=== PATIENT | male | born 1935 | race Asian ===

== ENCOUNTER 2017-01-28 17:11 | Emergency (ER) | payer OTHER ==
[~2017-01-28] VITALS: Ht 167.6 cm; Wt 71.0 kg
[~2017-01-28 17:11] MED LIST: ATOR20TA38 PO; DABI150C PO; LOSA1TAB19 PO; METO-448 PO; TIOT18CA IH
[2017-01-28 17:14] VITALS: Ht 167.6 cm; Wt 71.0 kg
[2017-01-28] MEDS ORDERED: ALBUTEROL 0.083% (NEB) 2.5 MG/3 ML AMP HHN STA (17:52)
[2017-01-28] MEDS ORDERED: IPRATROPIUM (NEB) 0.5 MG/2.5 ML AMP HHN ONE (18:00)
--- NOTE | 2017-01-28 18:00 | ERD ---
ER Documentation Chief Complaint Date/Time DATE: 01/28/17 TIME: 17:55 Chief Complaint COUGH X 2 MONTHS HPI 81-year-old male who presents to the emergency room for non-productive cough that is on and off for about 2 months. Daughter stated that patient was treated with azithromycin 2 months ago for the same symptoms. Patient was exposed to family members in the past cough and cold. Denies headache, loss of consciousness, dizziness, blurry vision, changes in vision, photophobia, facial pain, ear pain, throat pain, difficulty swallowing, neck pain, shoulder pain, chest pain, hemoptysis, abdominal pain, back pain, loss of appetite, nausea, vomiting, hematochezia, diarrhea, constipation, urinary symptoms, bladder and bowel incontinences, extremity weakness, extremity tenderness, numbness or tingling sensation, difficulty walking, recent travel, recent exposure to illness, fever, chills. Allergy: No known drug allergies. PMH: Asthma, hypertension, hyperlipidemia, COPD. Medications: Spiriva, losartan, simvastatin, Pradaxa Surgery: Family history: Denies. Primary Social History: Retired. Denies smoking, use of alcohol, use of illegal drugs. ROS All systems reviewed and are negative except as per history of present illness. Medications Home Meds Active Scripts Metoprolol Tartrate* (Lopressor*) 25 Mg Tab, 25 MG PO BID for 30 Days, TAB Prov:EHSAN MIRZA MD 06/27/15 Atorvastatin Calcium* (Atorvastatin Calcium*) 20 Mg Tab, 20 MG PO HS for 30 Days , TAB Prov:EHSAN MIRZA MD 06/27/15 Reported Medications Tiotropium [place]* (Spiriva*) 18 Mcg Cap.w.dev, 1 INH IH DAILY, EA 06/17/15 Losartan-Hydrochlorothiazide (Losartan-HCTZ) 50-12.5 Mg Tab, 1 TAB PO DAILY, TAB 06/17/15 Dabigatran Etexilate Mesylate* (Pradaxa*) 150 Mg Capsule, 150 MG PO BID, CAP 06/17/15 Allergies Allergies: Coded Allergies: No Known Allergy (Unverified , 06/17/15) PMhx/Soc History of Surgery: Yes (gastric surgery) Anesthesia Reaction: No Hx Neurological Disorder: No Hx Respiratory Disorders: No Hx Cardiac Disorders: Yes (htn) Hx Psychiatric Problems: No Hx Miscellaneous Medical Probl: No Hx Alcohol Use: No Hx Substance Use: No Hx Tobacco Use: No Physical Exam Vitals Vital Signs Date Time Temp Pulse Resp B/P Pulse Ox O2 Delivery O2 Flow Rate FiO2 01/28/17 18:12 65 20 93 21 01/28/17 17:14 97.9 90 18 145/95 96 Physical Exam CONSTITUTIONAL: Well-appearing; well-nourished; in no apparent distress. HEAD: Normocephalic; atraumatic. EYES: Conjunctiva clear, sclera non-icteric, EOM intact. PERRL Ears: Hearing intact. EACs clear, TMs non-bulging, non-inflamed, translucent & mobile, ossicles normal appearance, No obstructions, no erythema, no discharges Nose: No obstructions. No polyps. No external lesions. Mucosa non-inflamed. No external lesions, septum and turbinates normal. No rhinorrhea. No discharges. Frontal sinus is non-tender to palpation. Maxillary sinus is non-tender to palpation. MOUTH: Moist mucous membranes, no lesion, no obstructions, no vesicles, no thrush, patent airway Throat: Uvula in midline. Right tonsil is +1 with no erythema, no exudate. Left tonsil is +1 with no erythema, no exudate. Tolerating secretions well. Good gag reflex. Patent airway. Neck: Supple, without lesions, bruits, or adenopathy. No mass. Thyroid non- enlarged and non-tender to palpation. CHEST: Symmetrical chest. Respirations even and not labored. No retractions noted. CARDIOVASCULAR: Normal S1, S2. RRR. No murmurs, gallops. RESPIRATORY: Normal chest excursion with respiration; no wheezes, rhonchi, or rales. Mild wheezing bilateral lower lobes. Breathing even and unlabored. Speaking in clear, full, and complete sentences w/ ease. ABDOMEN: Normal bowel sounds normal. Soft, round, non-distended, non-guarding, no tenderness, no rebound, no organomegaly, no masses, no pulsating abdominal mass. No hernia. No peritoneal signs. : No CVA tenderness. BACK: Symmetrical shoulder. Spine is midline without deformity, tenderness. No evidence of trauma or deformity. PELVIS: Stable pelvis. No evidence of trauma or deformity. MUSCULOSKELETAL: Normal gait and station. No misalignment, asymmetry, crepitation, defects, tenderness, masses, effusions, decreased range of motion, instability, atrophy or abnormal strength or tone in the head, neck, spine, ribs , pelvis or extremities. No bilateral lower extremity edema. No calf tenderness. NEUROVASCULAR: Distal pulses are present. Pedal pulse are present, equal, and normal. Capillary refills are < 2 seconds. NEUROLOGIC: Alert and oriented x4. Speaks full and clear sentences. Cranial Nerves II-XII normal. Sensation to pain, touch, and proprioception normal. Grossly unremarkable. No neurologic deficits. Romberg test is negative. PSYCHOLOGICAL: The patients mood and manner are appropriate. No hallucinations , delusions. Not SI. Not HI. Has the capacity to decide for self SKIN: Normal for age and ethnicity; warm; dry; good turgor; no apparent lesions or exudates. No rashes, hives, discoloration. Intact. Result Diagram: 01/28/17193401/28/171934 Results 24 hrs Laboratory Tests Test 01/28/17 19:35 White Blood Count 9.910^3/ul Red Blood Count 5.0610^6/ul Hemoglobin 15.1g/dl Hematocrit 46.1% Mean Corpuscular Volume 91.1fl Mean Corpuscular Hemoglobin 29.8pg Mean Corpuscular Hemoglobin Concent 32.8g/dl Red Cell Distribution Width 12.4% Platelet Count 34959^3/UL Mean Platelet Volume 9.3fl Neutrophils % 55.3% Lymphocytes % 34.9% Monocytes % 6.6% Eosinophils % 2.2% Basophils % 0.5% Nucleated Red Blood Cells % 0.0/100WBC Neutrophils # 5.510^3/ul Lymphocytes # 3.510^3/ul Monocytes # 0.710^3/ul Eosinophils # 0.210^3/ul Basophils # 0.110^3/ul Nucleated Red Blood Cells # 0.010^3/ul Prothrombin Time 14.7Sec Prothrombin Time Ratio 1.1 INR International Normalized Ratio 1.15 Activated Partial Thromboplast Time 45.0Sec Sodium Level 136mmol/L Potassium Level 4.3mmol/L Chloride Level 98mmol/L Carbon Dioxide Level 31mmol/L Anion Gap 11 Blood Urea Nitrogen 22mg/dl Creatinine 1.04mg/dl Glucose Level 110mg/dl Calcium Level 9.3mg/dl Troponin I < 0.012ng/ml B-Type Natriuretic Peptide 443PG/ML Current Medications Medications (Trade) Dose Ordered Sig/Waqas Route PRN Reason Start Time Stop Time Status Last Admin Dose Admin Albuterol (Proventil 0.083% (Neb)) 5 mg ONCE STAT HHN 01/28/17 17:52 01/28/17 17:55 DC 01/28/17 18:10 Ipratropium [place] (Atrovent 0.02% (Neb)) 0.5 mg ONCE ONCE HHN 01/28/17 18:00 01/28/17 18:01 DC 01/28/17 18:10 Furosemide (Lasix) 20 mg ONCE ONCE IV 01/28/17 19:30 01/28/17 19:31 DC 01/28/17 19:47 Procedures/MDM Examination: Please see physical examination. Disease process, medical treatment was explained to the patient and family member. They verbalized understanding and agreed with the diagnostic tests, medical treatment, and follow-up care. EKG: Atrial fibrillation with a ventricular rate of 94 bpm. Radiology: Chest x-ray Impression: Mild pulmonary edema. Mild atelectasis at lung bases. Cardiomegaly and atherosclerosis. Otherwise unremarkable chest radiograph. I discussed this case with Dr. Darron Donis. He examined the patient. He agreed with my medical decision making and he suggested for me to talk to Dr. Ashutosh Das too. I discussed this case with Dr. Ashutosh Das. He agreed with y medical decision making and suggested for me to order Lasix 20 mg IV x 1. Treatment: Albuterol and Atrovent breathing treatment. Lasix 20 mg IV. Re-evaluation: Denies headache, dizziness, blurry vision, neck pain, chest pain , back pain, abdominal pain. No nausea and vomiting. Lung sounds are clear to auscultation. Patient speaks full and clear sentences. No neurological deficits. Consultation: None. Differential diagnosis: Pneumonia versus COPD exacerbation versus CHF Medical decision makin-year-old male who presents to the emergency room for non-productive cough that is on and off for about 2 months. Daughter stated that patient was treated with azithromycin 2 months ago for the same symptoms. Patient was exposed to family members in the past cough and cold. Patient's complaint, daughters history about patient's complaint, diagnostic test results, my physical findings, my reevaluation are consistent with my final diagnosis of cough, mild CHF, mild pulmonary edema. Medications prescribed are the following: Lasix 40 mg daily by mouth. Patient and family member are made aware of the side effects and adverse reactions of the medications prescribed. Instructed on when to seek emergent and medical attention in case allergic/anaphylactic reactions or severe side effects and or adverse reactions to medications. Patient and family member verbalized understanding. Patient instructed Instructed to follow-up with his PCP in 24-48 hours. Patient's daughter stated that she will make sure to bring her father to his primary care provider in the next 24 hours. Instructed to Call 911 for chest pain, shortness of breath. Advised to come back here in ED as soon as possible for severity of symptoms which includes but not limited to: any new symptoms; shortness of breath/difficulty of breathing; cardiovascular changes; severe gastrointestinal symptoms; signs and symptoms of bleeding and or infection; signs of compartment syndrome/neurovascular changes; neurological changes/deficits. Patient and family member verbalized understanding. Upon discharge, patient is alert and oriented x 4, speaks full and clear sentences, denies pain, has no neurological deficits, has no neurovascular deficits, difficulty of breathing. Breathing even and unlabored. Lung sounds are clear to auscultation. Not in distress. Appears comfortable. Ambulatory with steady gait. Appears satisfied with care provided here in ED. Departure Diagnosis: Primary Impression: Cough Condition: Good Additional Instructions: Patient instructed Instructed to follow-up with his PCP in 24-48 hours. Patient's daughter stated that she will make sure to bring her father to his primary care provider in the next 24 hours. Instructed to Call 911 for chest pain, shortness of breath. Advised to come back here in ED as soon as possible for severity of symptoms which includes but not limited to: any new symptoms; shortness of breath/difficulty of breathing; cardiovascular changes; severe gastrointestinal symptoms; signs and symptoms of bleeding and or infection; signs of compartment syndrome/neurovascular changes; neurological changes/deficits. Patient and family member verbalized understanding. VIET SARKAR Jan 28, 2017 18:00
--- NOTE | 2017-01-28 19:07 | RADRPT ---
PROCEDURE: XR Chest. CLINICAL INDICATION: Cough for 2 months. TECHNIQUE: Two views. Frontal and lateral. COMPARISON: No prior study is available for comparison. FINDINGS: There is mild atelectasis at the lung bases. There is mild cephalization of the pulmonary vasculatu re and interstitial disease consistent with pulmonary edema. The lungs are otherwise clear. The heart is mildly enlarged. There is calcification in the aorta consistent with atherosclerosis. There is no pleural effusion. There is no pneumothorax. IMPRESSION: 1. Mild pulmonary edema. 2. Mild atelectasis at the lung bases. 3. Cardiomegaly and atherosclerosis. 4. Otherwise unremarkable chest radiograph. RPTAT: QQ .Darron Calixto MD, MD Date Time Electronically viewed and signed by .Darron Calixto MD, on 01/28/2017 19:07 .R/
[2017-01-28] MEDS ORDERED: FUROSEMIDE 20 MG INJ IV ONE (19:30)
[2017-01-28 20:05] LABS: ADD SCAN DIFF NO
[2017-01-28 20:17] LABS: CHLORIDE 98 mmol/L (97-110); POTASSIUM 4.3 mmol/L (3.5-5.1); SODIUM 136 mmol/L (135-144)
[2017-01-28 20:18] LABS: BASOPHIL # 0.1 10^3/ul (0.0-0.1); BASOPHILS % 0.5 % (0.0-2.0); EOSINOPHILS # 0.2 10^3/ul (0.0-0.5); EOSINOPHILS % 2.2 % (0.0-7.0); HEMATOCRIT 46.1 % (42.0-52.0); HEMOGLOBIN 15.1 g/dl (14.0-18.0); INR 1.15; LYMPHOCYTES # 3.5 10^3/ul (0.8-2.9); LYMPHOCYTES % 34.9 % (15.0-51.0); MEAN CORPUSCULAR HEMOGLOBIN 29.8 pg (29.0-33.0); MEAN CORPUSCULAR HGB CONC 32.8 g/dl (32.0-37.0); MEAN CORPUSCULAR VOLUME 91.1 fl (82.0-101.0); MEAN PLATELET VOLUME 9.3 fl (7.4-10.4); MONOCYTE # 0.7 10^3/ul (0.3-0.9); MONOCYTES % 6.6 % (0.0-11.0); NEUTROPHIL # 5.5 10^3/ul (1.6-7.5); NEUTROPHILS % 55.3 % (39.0-77.0); PLATELET COUNT 241 10^3/UL (140-415); PROTIME 14.7 Sec (12.2-14.2); PT RATIO 1.1; RED BLOOD COUNT 5.06 10^6/ul (4.70-6.10); RED CELL DISTRIBUTION WIDTH 12.4 % (11.5-14.5); WHITE BLOOD COUNT 9.9 10^3/ul (4.8-10.8)
[2017-01-28 20:20] LABS: ANION GAP 11 (8-16); CARBON DIOXIDE 31 mmol/L (21-31); CREATININE 1.04 mg/dl (0.61-1.24)
[2017-01-28 20:21] LABS: BLOOD UREA NITROGEN 22 mg/dl (7-20); CALCIUM 9.3 mg/dl (8.4-10.2); GLUCOSE 110 mg/dl (70-220)
[2017-01-28 20:30] LABS: B-TYPE NATRIURETIC PEPTIDE 443 PG/ML (0-450)
[2017-01-28 20:38] LABS: TROPONIN-I < 0.012 ng/ml (0.00-0.12)
[2017-01-28] MEDS ORDERED: FURO-109 PO (20:47)
[2017-01-28 21:11] VITALS: BP 165/98; PULSE 104; RESP 18; TEMP 97.9
--- NOTE | 2017-01-29 15:15 | ERD ---
ER Documentation Chief Complaint Date/Time DATE: 01/29/17 TIME: 15:13 Chief Complaint COUGH X 2 MONTHS ROS All systems reviewed and are negative except as per history of present illness. Medications Home Meds Active Scripts Furosemide* (Lasix*) 40 Mg Tablet, 40 MG PO DAILY, #20 TAB Prov:VIET SARKAR 01/28/17 Metoprolol Tartrate* (Lopressor*) 25 Mg Tab, 25 MG PO BID for 30 Days, TAB Prov:EHSAN MIRZA MD 06/27/15 Atorvastatin Calcium* (Atorvastatin Calcium*) 20 Mg Tab, 20 MG PO HS for 30 Days , TAB Prov:EHSAN MIRZA MD 06/27/15 Reported Medications Tiotropium [place]* (Spiriva*) 18 Mcg Cap.w.dev, 1 INH IH DAILY, EA 06/17/15 Losartan-Hydrochlorothiazide (Losartan-HCTZ) 50-12.5 Mg Tab, 1 TAB PO DAILY, TAB 06/17/15 Dabigatran Etexilate Mesylate* (Pradaxa*) 150 Mg Capsule, 150 MG PO BID, CAP 06/17/15 Allergies Allergies: Coded Allergies: No Known Allergy (Unverified , 06/17/15) PMhx/Soc History of Surgery: Yes (gastric surgery) Anesthesia Reaction: No Hx Neurological Disorder: No Hx Respiratory Disorders: No Hx Cardiac Disorders: Yes (htn) Hx Psychiatric Problems: No Hx Miscellaneous Medical Probl: No Hx Alcohol Use: No Hx Substance Use: No Hx Tobacco Use: No Physical Exam Vitals Vital Signs Date Time Temp Pulse Resp B/P Pulse Ox O2 Delivery O2 Flow Rate FiO2 01/28/17 21:11 97.9 104 18 165/98 96 01/28/17 18:12 65 20 93 21 01/28/17 17:14 97.9 90 18 145/95 96 Physical Exam Const: [] Head: Atraumatic Eyes: Normal Conjunctiva ENT: Normal External Ears, Nose and Mouth. Neck: Full range of motion..~ No meningismus. Resp: Clear to auscultation bilaterally Cardio: Regular rate and rhythm, no murmurs Abd: Soft, non tender, non distended. Normal bowel sounds Skin: No petechiae or rashes Back: No midline or flank tenderness Ext: No cyanosis, or edema Neur: Awake and alert Psych: Normal Mood and Affect Result Diagram: 01/28/17193401/28/171934 Results 24 hrs Laboratory Tests Test 01/28/17 19:35 White Blood Count 9.910^3/ul Red Blood Count 5.0610^6/ul Hemoglobin 15.1g/dl Hematocrit 46.1% Mean Corpuscular Volume 91.1fl Mean Corpuscular Hemoglobin 29.8pg Mean Corpuscular Hemoglobin Concent 32.8g/dl Red Cell Distribution Width 12.4% Platelet Count 44373^3/UL Mean Platelet Volume 9.3fl Neutrophils % 55.3% Lymphocytes % 34.9% Monocytes % 6.6% Eosinophils % 2.2% Basophils % 0.5% Nucleated Red Blood Cells % 0.0/100WBC Neutrophils # 5.510^3/ul Lymphocytes # 3.510^3/ul Monocytes # 0.710^3/ul Eosinophils # 0.210^3/ul Basophils # 0.110^3/ul Nucleated Red Blood Cells # 0.010^3/ul Prothrombin Time 14.7Sec Prothrombin Time Ratio 1.1 INR International Normalized Ratio 1.15 Activated Partial Thromboplast Time 45.0Sec Sodium Level 136mmol/L Potassium Level 4.3mmol/L Chloride Level 98mmol/L Carbon Dioxide Level 31mmol/L Anion Gap 11 Blood Urea Nitrogen 22mg/dl Creatinine 1.04mg/dl Glucose Level 110mg/dl Calcium Level 9.3mg/dl Troponin I < 0.012ng/ml B-Type Natriuretic Peptide 443PG/ML Current Medications Medications (Trade) Dose Ordered Sig/Waqas Route PRN Reason Start Time Stop Time Status Last Admin Dose Admin Albuterol (Proventil 0.083% (Neb)) 5 mg ONCE STAT N 01/28/17 17:52 01/28/17 17:55 DC 01/28/17 18:10 Ipratropium [place] (Atrovent 0.02% (Neb)) 0.5 mg ONCE ONCE N 01/28/17 18:00 01/28/17 18:01 DC 01/28/17 18:10 Furosemide (Lasix) 20 mg ONCE ONCE IV 01/28/17 19:30 01/28/17 19:31 DC 01/28/17 19:47 Procedures/MDM note- Subjective-patient presents with cough for last 2 months history of COPD, atrial fibrillation. He has no fevers or chest pain or shortness of breath. Objective-patient was noted to have slight pulmonary edema on x-ray without infiltrate. EKG shows atrial fibrillation BNP was in the 400s. Patient had slight rhonchi without significant rales in the significant wheezing. Assessment-patient presents with cough for last month. He has signs of possibly mild CHF. He also has history of COPD which may be a cause. Plan-patient was treated with short course of Lasix to his current medications and follow-up with primary doctor for further evaluation otherwise return to ER for new or worsening symptoms. Departure Diagnosis: Primary Impression: Cough Condition: Good Patient Instructions: Cough, Chronic, Uncertain Cause, (Adult) Referrals: RAHEEM PERDOMO MD (PCP) Additional Instructions: Patient instructed Instructed to follow-up with his PCP in 24-48 hours. Patient's daughter stated that she will make sure to bring her father to his primary care provider in the next 24 hours. Instructed to Call 911 for chest pain, shortness of breath. Advised to come back here in ED as soon as possible for severity of symptoms which includes but not limited to: any new symptoms; shortness of breath/difficulty of breathing; cardiovascular changes; severe gastrointestinal symptoms; signs and symptoms of bleeding and or infection; signs of compartment syndrome/neurovascular changes; neurological changes/deficits. Patient and family member verbalized understanding. DIMA HOLLOWAY MD Jan 29, 2017 15:15
== END 2017-01-28 21:33 | disposition home or self-care (01) ==
LOC: FTE 17:11
DX: R05 Cough (principal); I50.9 Heart failure, unspecified; J81.1 Chronic pulmonary edema; I10 Essential (primary) hypertension; J45.909 Unspecified asthma, uncomplicated; J44.9 Chronic obstructive pulmonary disease, unspecified
CPT/HCPCS: 71020; 80048; 83880; 84484; 85025; 85610; 85730; 93005; 94664; J1940; Z7610; 96374

== ENCOUNTER 2017-04-29 17:59 | Inpatient (IN) | END 2017-05-16 14:32 | disposition EXP | DRG 163 | DX: C34.11 Malignant neoplasm of upper lobe, right bronchus or lung (principal); J18.9 Pneumonia, unspecified organism; K72.00 Acute and subacute hepatic failure without coma; J96.01 Acute respiratory failure with hypoxia; R65.21 Severe sepsis with septic shock; G93.40 Encephalopathy, unspecified; A41.9 Sepsis, unspecified organism; J44.0 Chronic obstructive pulmonary disease with (acute) lower respiratory infection; D68.9 Coagulation defect, unspecified; J95.811 Postprocedural pneumothorax; E87.2 Acidosis; J44.1 Chronic obstructive pulmonary disease with (acute) exacerbation; E07.9 Disorder of thyroid, unspecified; K76.9 Liver disease, unspecified; I48.2 Chronic atrial fibrillation; Z79.01 Long term (current) use of anticoagulants; Z87.891 Personal history of nicotine dependence; I10 Essential (primary) hypertension; J20.9 Acute bronchitis, unspecified; E78.5 Hyperlipidemia, unspecified; Y84.8 Other medical procedures as the cause of abnormal reaction of the patient, or of later complication, without mention of misadventure at the time of the procedure; Y92.239 Unspecified place in hospital as the place of occurrence of the external cause; I27.2 Other secondary pulmonary hypertension; D64.9 Anemia, unspecified; Z66 Do not resuscitate; I46.9 Cardiac arrest, cause unspecified; N28.9 Disorder of kidney and ureter, unspecified; D69.6 Thrombocytopenia, unspecified ==